=== PATIENT | male | born 1945 | race Caucasian/White ===

== ENCOUNTER 2018-04-18 20:35 | Inpatient (IN) ==
[2018-04-18] MEDS ORDERED: MOTRIN LIQUID PO ONE (21:06)
--- NOTE | 2018-04-18 21:34 | PROVIDER DOCUMENTATION ---
HPI-General Adult - General Chief Complaint: Flu Symptoms Stated Complaint: FLU Time Seen by Provider: 04/18/18 21:14 Source: patient, family Allergies/Adverse Reactions: Patient Allergies Allergy/AdvReac Type Severity Reaction Status Date / Time celecoxib [From Celebrex] Allergy ANAPHYLAXIS Verified 07/09/17 11:30 Home Medications: Home Medication List Medication Instructions Recorded Confirmed Last Taken Type Aspirin 81 mg PO DAILY 06/07/16 04/19/18 04/18/18 08:00 History Atorvastatin Calcium 80 mg PO DAILY@1700 06/07/16 04/19/18 04/18/18 08:00 History Bupropion [Wellbutrin] 150 mg PO DAILY 06/07/16 04/19/18 04/18/18 08:00 History Gabapentin 2 cap PO BID 06/07/16 04/19/18 04/18/18 08:00 History Insulin Aspart [Novolog] See Protocol SQ AC 06/07/16 04/19/18 04/18/18 12:00 History Insulin Glargine [Lantus] 60 unit SQ BID 06/07/16 04/19/18 04/18/18 12:00 History Magnesium Oxide [Mag-Ox] 400 mg PO DAILY@1700 06/07/16 04/19/18 04/18/18 17:00 History [place]-3 Fatty Acids [Fish Oil] 300 mg PO DAILY 06/07/16 04/19/18 04/18/18 08:00 History Ropinirole HCl 2 mg PO HS 06/07/16 04/19/18 04/17/18 21:00 History Tamsulosin [Flomax] 0.4 mg PO DAILY 06/07/16 04/19/18 04/18/18 08:00 History Zinc Gluconate [Zinc] 220 mg PO DAILY@1200 06/07/16 04/19/18 04/18/18 12:00 History Levothyroxine Sodium [Synthroid] 50 mcg PO DAILY@0700 04/12/17 04/19/18 07:00 History Melatonin 2 tab PO QHS 04/12/17 04/19/18 04/17/18 21:00 History Vitamin B Complex [B Complex] 1 each PO DAILY@1200 04/12/17 04/19/18 04/18/18 08 :00 History Hydrocortisone 1% Cream 30 gm .SEE ORDER DAILY PRN 05/02/17 04/19/18 04/16/18 08 :00 History Ranitidine [Zantac] 150 mg PO BID 05/02/17 04/19/18 04/18/18 08:00 History Amitriptyline HCl 1 tab PO QHS 05/22/17 04/19/18 04/17/18 22:00 History Amlodipine [Norvasc] 2.5 mg PO DAILY 05/22/17 04/19/18 04/18/18 08:00 History Ergocalciferol (Vitamin D2) 1 cap PO DIRECTED 05/22/17 04/19/18 04/01/18 08: 00 History [Vitamin D2] Folic Acid/Vit Bcomp,C [Renal 1 tab PO DAILY 07/09/17 04/19/18 04/18/18 08:00 History Vitamin Tablet] Metoprolol Tartrate 50 mg PO DAILY 07/09/17 04/19/18 04/18/18 08:00 History Furosemide 40 mg PO DAILY PRN #30 07/11/17 04/19/18 04/18/18 08:00 Rx Oseltamivir [Tamiflu] 75 mg PO BID #10 cap 04/17/18 04/19/18 04/18/18 08:00 Rx - History of Present Illness -Gen Adult Nature of Presenting Problems: PATIENT WAS DIAGNOSED WITH FLU YESTERDAY, CAME BACK FOR FEVER AND CHILLS, PATIENT HAD HISTORY OF KIDNEY CANCER, METASTASIS, DIABETIC NEUROPATHY, CAD WITH FEVER AND WEAKNESS, BODY ACHING Location of Pain/Injury: reports: generalized Pain Radiation: reports: no radiation Quality of Pain: reports: aching, dull Onset/Duration: reports: 3 days ago Timing: reports: still present Context/Activities at Onset: reports: none Modifying Factors: improves with: nothing Associated Symptoms: reports: fatigue, fever/chills. denies: anxiety Similar Symptoms Previously?: No Recently seen or treated by another doctor?: Yes (WAS IN ER LAST NIGHT ) Review of Systems - Adult - REVIEW OF SYSTEMS - ADULT Constitutional: reports: fever, fatique, night sweats Eyes: reports: no symptoms reported Ears, Nose, Mouth & Throat: reports: no symptoms reported Cardiovascular: reports: no symptoms reported Respiratory: reports: see HPI Gastrointestinal: reports: no symptoms reported Genitourinary: reports: no symptoms reported Musculoskeletal: reports: no symptoms reported Integumentary: reports: no symptoms reported Neurological: reports: no symptoms reported Past History - Adult - PAST MEDICAL HISTORY-ADULT Review of Records: reports: Nursing Assessment Review Major Childhood Illnesses: reports: denies history Cardiovascular: reports: CHF, HTN, hyperlipidemia Respiratory: reports: COPD, cancer (lung) Gastrointestinal: reports: GERD Obstetrical/Gynecological: reports: denies history Genitourinary: reports: cancer (kidney) Musculoskeletal: reports: denies history Neurological: reports: CVA Psychiatric: reports: depression Endocrine/Immune: reports: Diabetes Other Conditions: reports: denies history - PRIOR SURGERIES/PROCEDURES Surgical/Procedure History: reports: appendectomy, cardiac stent, other (left kidney removal) - IMMUNIZATION STATUS Childhood Immunizations: See Nurse Assessment Flu Vaccine: See Nurse Assessment - FAMILY HISTORY Family History: reviewed, not pertinent Physical Exam-General - PHYSICAL EXAM-ADULT Initial Vital Signs Reviewed: Yes - CONSTITUTIONAL General Appearance: alert, obese, other (SWEATING PROFUSELY) - EYES Eyes: PERRL/EOMI - HEAD, EARS, NOSE, MOUTH & THROAT HENMT: normocephalic/atraumatic - NECK Neck: non-tender, supple - RESPIRATORY Respiratory: no respiratory distress - CARDIOVASCULAR Cardiovascular: no edema, tachycardia - GASTROINTESTINAL (ABDOMEN) Abdominal Exam: non tender - LYMPHATIC Lymphatic: no adenopathy - MUSCULOSKELETAL Back Exam: no CVA tenderness, no vertebral tenderness Extremity: non-tender - SKIN Integumentary: diaphoresis - NEUROLOGIC Neurologic: grossly normal, no motor/sensory deficits - PSYCHIATRIC Psych/Mental Status: normal mood/affect Progress - PLAN OF CARE/RESULTS Progress/Plan/Lab Results: Vital Signs - 8 hr 04/18/18 20:37 Temperature 103.0 F H Pulse Rate 102 H Respiratory Rate 24 Blood Pressure 144/101 O2 Sat by Pulse Oximetry 92 L Orders Category Date Time Status Cardiac Monitoring DIRECTED Care 04/18/18 21:14 Active IV Insertion ORDERED Care 04/18/18 21:14 Active Notify MD of + Sepsis Screen NOW Care 04/18/18 21:14 Active Notify Physician As Ordered Care 04/18/18 21:14 Active CHEST-1 VIEW [RAD] Stat Exams 04/18/18 21:14 Ordered BLOOD CULTURE [BLDCUL] Stat Lab 04/18/18 21:14 Uncollected BNP [PRO B-NATRIURETIC PEPTIDE] Stat Lab 04/18/18 21:27 Uncollected CBC WITH DIFF [HEME] Stat Lab 04/18/18 21:14 Uncollected CK PROFILE [SP CHEM] Stat Lab 04/18/18 21:14 Uncollected COMPREHENSIVE METABOLIC PANEL [CHEM] Stat Lab 04/18/18 21:[address] Stat Lab 04/18/18 21:15 Uncollected LACTATE, PLASMA [CHEM] Q3H Lab 04/18/18 21:15 Uncollected LACTATE, PLASMA [CHEM] Q3H Lab 04/19/18 00:15 Uncollected LACTATE, PLASMA [CHEM] Q3H Lab 04/19/18 03:15 Uncollected PROTIME WITH INR [COAG] Stat Lab 04/18/18 21:14 Uncollected PTT [COAG] Stat Lab 04/18/18 21:14 Uncollected TROPONIN T Stat Lab 04/18/18 21:[address] W/POSS RFLX CULT [URINALYSIS] Stat Lab 04/18/18 21:23 Received Ibuprofen [Motrin Liquid] Med 04/18/18 21:06 Discontinued 800 mg PO NOW ONE Oxygen Device Stat Oth 04/18/18 21:14 Active Result Diagrams: 04/18/18 21:30 04/18/18 21:30 Departure - Departure Date of Disposition Decision: 04/19/18 Time of Disposition Decision: 01:30 DIAGNOSIS: Fever Disposition: ADMITTED INPATIENT 09 Certified Medical Emergency: Emergent Condition: Good - Critical Care Note This patient required my direct & personal management of CC.: No Attestation - Physician/ IVELISSE Attestation Patient care was provided by Advanced Practice Provider:: No The physician spent face to face time with patient:: Yes Advanced Practice Provider documentation review:: Supervising physician onsite and consulted in the evaluation and care of this patient. The physician did have a face to face encounter with the patient.
[2018-04-18 21:42] LABS: BASO# 0.01 X1000 (0.0-0.2); BASO% 0.2 % (0.0-0.8); EOS# 0.01 X1000 (0.0-0.7); EOS% 0.2 % (0.0-10.0); HEMATOCRIT 41.4 % (42.0-52.0); HEMOGLOBIN 14.4 g/dL (14.0-18.0); IMM GRAN# 0.02 X1000 (0.0-0.04); IMM GRAN% 0.4 % (0.0-0.5); LYMPH# 0.25 X1000 (1.2-3.4); LYMPH% 5.5 % (20.5-51.1); MCH 30.1 PG (27-31); MCHC 34.8 g/dL (33-37); MCV 86.4 FL (81-99); MONO# 0.18 X1000 (0.11-0.59); MPV 9.9 FL (7.4-10.4); NEUT# 4.07 X1000 (1.4-6.5); NEUT% 89.7 % (42.2-75.2); PLT 125 X1000 (130-400); RBC 4.79 XMIL (4.7-6.1); RDW 15.3 % (11.5-14.5); WBC 4.54 X1000 (4.8-10.8)
[2018-04-18 21:45] LABS: BILIRUBIN URINE NEGATIVE (NEGATIVE); BLOOD URINE 3+ (NEGATIVE); CLARITY CLEAR (CLEAR); COLOR YELLOW; KETONE URINE NEGATIVE (NEGATIVE); LEUKOCYTES URINE NEGATIVE (NEGATIVE); NITRITE URINE NEGATIVE (NEGATIVE); PH URINE 6.5; SP GRAVITY URINE 1.015; UROBILINOGEN URINE NORMAL
[2018-04-18 21:48] LABS: URINE EPITHELIAL CELLS <10 /HPF (<10); URINE RBC <10 /HPF (<10); URINE WBC <10 /HPF (<10)
[2018-04-18 21:49] LABS: URINE BACTERIA 2+ /HFP; URINE SOURCE CLEAN CATCH
[2018-04-18 22:15] LABS: ALBUMIN 3.7 g/dL (3.5-5.0); CALCIUM 8.6 mg/dL (8.8-10.2); CREATININE 2.9 mg/dL (0.7-1.2); POTASSIUM 5.7 mmol/L (3.5-5.1); TOTAL BILIRUBIN 0.9 mg/dL (0.20-1.00); TOTAL PROTEIN 6.9 g/dL (6.3-8.3)
[2018-04-18 22:16] LABS: INFLUENZA A NEGATIVE (NEGATIVE); INFLUENZA B NEGATIVE (NEGATIVE); INR 0.98; PROTIME 13.5 Seconds (11.0-16.0)
[2018-04-18 22:17] LABS: PTT 35.8 Seconds (22.3-41.8)
[2018-04-18 22:39] LABS: CK INDEX 0.9 (0.0-2.5); CK-MB 6.09 ng/mL (0.0-5.0)
[2018-04-19] MEDS ORDERED: VANCOMYCIN 1 GM/NS 1 GM/250 ML IVPB IV ONE (00:09)
[2018-04-19] MEDS ORDERED: KAYEXALATE PO ONE (00:10)
[2018-04-19] MEDS ORDERED: MORPHINE IV PRN (00:35)
[2018-04-19] MEDS ORDERED: ZOFRAN IV PRN (00:35)
[2018-04-19] MEDS ORDERED: KAYEXALATE ONE (00:44)
[2018-04-19] MEDS: ZOSYN 2.25 GM in NS 50 ML IV SCH ×4 (03:13→21:26)
[2018-04-19] MEDS ORDERED: NS 500 ML IV ONE (03:38)
[2018-04-19] MEDS: NS 1,000 ML IV SCH ×3 (04:23→20:29)
[2018-04-19 07:28] LABS: HEMATOCRIT 39.7 % (42.0-52.0); HEMOGLOBIN 13.3 g/dL (14.0-18.0); MCH 29.4 PG (27-31); MCHC 33.5 g/dL (33-37); MCV 87.8 FL (81-99); MPV 9.8 FL (7.4-10.4); RBC 4.52 XMIL (4.7-6.1); RDW 15.4 % (11.5-14.5); WBC 7.49 X1000 (4.8-10.8)
[2018-04-19 08:11] LABS: ALBUMIN 3.1 g/dL (3.5-5.0); CALCIUM 8.3 mg/dL (8.8-10.2); CREATININE 3.1 mg/dL (0.7-1.2); POTASSIUM 5.7 mmol/L (3.5-5.1); TOTAL BILIRUBIN 0.7 mg/dL (0.20-1.00); TOTAL PROTEIN 6.5 g/dL (6.3-8.3)
[2018-04-19] MEDS ORDERED: INSULIN PEN NEEDLES MISC PRN (13:03)
[2018-04-19] MEDS: LASIX IV SCH (13:45)
[2018-04-19] MEDS: REQUIP PO SCH (21:26)
[2018-04-19] MEDS: NEURONTIN PO SCH (21:26)
[2018-04-19] MEDS: BASAGLAR SUBQ SCH (21:33)
[2018-04-20] MEDS: NS 1,000 ML IV SCH ×4 (00:53→21:42)
--- NOTE | 2018-04-20 01:51 | HISTORY AND PHYSICAL ---
CHIEF COMPLAINT: Fever and flu symptoms. HISTORY OF PRESENT ILLNESS: Patient is a 72-year-old male who presented to the emergency department. He had actually been to the ER 2 days ago and had a flu test that was negative and again flu test was negative this time. States, however, he has been having fevers, chills, generalized malaise, has been fatigued. He has had some cough and congestion. He has a known history of kidney cancer. ALLERGIES: Celebrex causing anaphylaxis. MEDICATIONS: Aspirin, atorvastatin 80, Wellbutrin 150, gabapentin 2 twice daily, Lantus insulin 60 units twice a day, magnesium, Ropinirole 2 mg at bedtime, Flomax 0.4 mg, Synthroid 50, Zantac, amitriptyline at bedtime, Norvasc 2.5, metoprolol 50. REVIEW OF SYSTEMS: Patient notes he does not feel well. He is having cough, congestion, fevers, chills. Denies any muscle aches, tremors, or palpitations. Does have some back aches. FAMILY HISTORY: Noncontributory. SOCIAL HISTORY: Patient lives at home. Does not smoke or drink. PAST MEDICAL HISTORY: High cholesterol, depression, chronic neuropathy, diabetes, restless leg, BPH, hypothyroidism, hypertension, history of kidney cancer with metastases. PHYSICAL EXAMINATION: VITAL SIGNS: Reviewed. T-max 103 degrees. Pulse stable. Respiratory 22. GENERAL: Patient is awake, alert. He is currently in no respiratory distress. He is pleasant to talk with. He is somewhat ill appearing. HEENT: Normocephalic. NECK: Supple. CARDIOVASCULAR: Regular rate. No murmurs. CHEST: Relatively clear. No crackles. Positive rhonchi. Positive upper airway noise. No wheezing. ABDOMEN: Soft, obese, nondistended. EXTREMITIES: Moves all extremities. His left leg is currently in a boot per Wound Care. ASSESSMENT: 1. Febrile illness. Patient certainly could have the flu although he has been flu negative x2. 2. Hypertension. 3. Diabetes. 4. Diabetic peripheral neuropathy. 5. Restless leg. 6. Benign prostatic hypertrophy. 7. Others. PLAN: We will ask Wound to remove the boot so they can reevaluate as that certainly could be the source of his infection. He has an elevated creatinine. Potassium is elevated at 5.7. Sodium is low at 30. We will place him on antibiotics and we will follow. cc: Julian Ramirez MD
[2018-04-20] MEDS: ZOSYN 2.25 GM in NS 50 ML IV SCH ×4 (04:11→21:42)
[2018-04-20 06:08] LABS: HEMATOCRIT 35.9 % (42.0-52.0); HEMOGLOBIN 12.1 g/dL (14.0-18.0); MCH 29.4 PG (27-31); MCHC 33.7 g/dL (33-37); MCV 87.1 FL (81-99); MPV 10.3 FL (7.4-10.4); RBC 4.12 XMIL (4.7-6.1); RDW 14.9 % (11.5-14.5); WBC 5.9 X1000 (4.8-10.8)
[2018-04-20 06:35] LABS: ALBUMIN 3.3 g/dL (3.5-5.0); CALCIUM 8.3 mg/dL (8.8-10.2); CREATININE 2.8 mg/dL (0.7-1.2); MAGNESIUM 1.9 mg/dL (1.5-2.7); TOTAL BILIRUBIN 0.5 mg/dL (0.20-1.00); TOTAL PROTEIN 6.6 g/dL (6.3-8.3)
[2018-04-20] MEDS: SYNTHROID PO SCH (06:39)
[2018-04-20] MEDS: HUMALOG (PARKWAY) SUBQ SCH ×4 (06:39→21:37)
[2018-04-20] MEDS ORDERED: LASIX PO PRN (10:12)
[2018-04-20] MEDS: FLOMAX PO SCH (10:39)
[2018-04-20] MEDS: ASPIRIN PO SCH (10:39)
[2018-04-20] MEDS: BASAGLAR SUBQ SCH ×2 (10:39→21:37)
[2018-04-20] MEDS: NEURONTIN PO SCH ×2 (10:39→21:37)
[2018-04-20] MEDS: LASIX IV SCH (10:40)
[2018-04-20] MEDS: WELLBUTRIN XL PO SCH (13:25)
[2018-04-20] MEDS: ZANTAC PO SCH ×2 (13:25→21:38)
--- NOTE | 2018-04-20 15:42 | PROGRESS NOTE ---
DATE: 04/20/2018 SUBJECTIVE: Patient overall notes that he is feeling okay. Actually notes having some pain in his left foot which is unusual for him. PHYSICAL EXAMINATION: Vital Signs: Temperature 98.2, pulse 65, respiratory rate 18, BP 102/49. General: Patient is awake, alert, currently in no distress. He is lying in the bed, propped up watching television. HEENT: Normocephalic. Neck: Supple. CARDIOVASCULAR: Regular rate. Chest: Clear. Abdomen: Soft. Extremities: Moves all extremities. Neurologic: No changes. Skin: Left great toe is currently bandaged, clean, dry, and intact. It was draining pus. This has been cultured. DISPOSITION: Will continue vancomycin and Zosyn. Continue to follow further orders as needed. cc: Julian Ramirez MD
[2018-04-20] MEDS: MAG-OX PO SCH (16:15)
[2018-04-20] MEDS: MELATONIN PO SCH (21:37)
[2018-04-20] MEDS: REQUIP PO SCH (21:38)
[2018-04-20] MEDS: ELAVIL PO SCH (21:38)
[2018-04-21] MEDS: NORCO-5 PO PRN ×2 (00:02→21:36)
[2018-04-21] MEDS: ZOSYN 2.25 GM in NS 50 ML IV SCH ×4 (02:50→21:29)
[2018-04-21] MEDS: NS 1,000 ML IV SCH (03:00)
[2018-04-21] MEDS: SYNTHROID PO SCH (06:31)
[2018-04-21] MEDS: BASAGLAR SUBQ SCH ×2 (10:22→21:29)
[2018-04-21] MEDS: FLOMAX PO SCH (10:23)
[2018-04-21] MEDS: WELLBUTRIN XL PO SCH (10:23)
[2018-04-21] MEDS: ASPIRIN PO SCH (10:23)
[2018-04-21] MEDS: NEURONTIN PO SCH ×2 (10:23→21:28)
[2018-04-21] MEDS: LASIX IV SCH (10:23)
[2018-04-21] MEDS: ZANTAC PO SCH ×2 (10:24→21:28)
[2018-04-21] MEDS: HUMALOG (PARKWAY) SUBQ SCH ×4 (10:24→21:29)
[2018-04-21] MEDS: MAG-OX PO SCH (16:56)
--- NOTE | 2018-04-21 17:46 | PROGRESS NOTE ---
DATE: 04/21/2018 SUBJECTIVE: Patient notes he is still having some pain deep inside his foot. Denies any fevers or chills. Denies GI or issues currently. Denies any other muscle aches. OBJECTIVE: Vital signs: Temperature 97.5, pulse 67, respiratory rate 20, BP 122/69. General: Patient is awake. He is in no current respiratory distress. Very pleasant to talk with. Sitting in the bed. HEENT: Normocephalic. Neck: Supple. Cardiovascular: Regular rate. No murmurs. Chest: Clear and unlabored. Abdomen: Soft, nondistended, obese. Extremities: Moves all extremities. Skin: Warm and dry. He has a left great toe bandage, clean, dry, and intact. ASSESSMENT: 1. Febrile illness, likely secondary to infection in his left great toe. Currently culture is negative. 2. Chronic renal failure, stable. 3. Diabetes with hyperglycemia and diabetic neuropathy. 4. Hypertension. PLAN: We will continue patient in the hospital. Continue antibiotics until cultures are negative. We will have wound therapy re-evaluate in the a.m. Continue to follow. cc: Julian Ramirez MD
[2018-04-21] MEDS: REQUIP PO SCH (21:28)
[2018-04-21] MEDS: MELATONIN PO SCH (21:28)
[2018-04-21] MEDS: ELAVIL PO SCH (21:29)
[2018-04-22] MEDS: ZOSYN 2.25 GM in NS 50 ML IV SCH ×2 (02:50→09:38)
[2018-04-22] MEDS: SYNTHROID PO SCH (06:02)
[2018-04-22] MEDS: HUMALOG (PARKWAY) SUBQ SCH ×2 (06:28→13:02)
[2018-04-22] MEDS: BASAGLAR SUBQ SCH (09:38)
[2018-04-22] MEDS: NEURONTIN PO SCH (09:38)
[2018-04-22] MEDS: WELLBUTRIN XL PO SCH (09:39)
[2018-04-22] MEDS: ASPIRIN PO SCH (09:39)
[2018-04-22] MEDS: FLOMAX PO SCH (09:39)
[2018-04-22] MEDS: ZANTAC PO SCH (09:39)
[2018-04-22 12:36] VITALS: BP 177/92
[2018-04-22] MEDS ORDERED: LEVAQUIN PO ONE (13:09)
--- NOTE | 2018-04-22 13:16 | Diag Imaging Result Doc PS360 ---
EXAM: FOOT COMPLETE LEFT 04/22/2018 HISTORY: r/o osteomyelitis TECHNIQUE: Left foot three views COMMENT: There is irregularity of the adjoining articular surfaces of the proximal and distal phalanges of the great toe. There is widening of the joint space. This was also present on 05/02/2017. No additional periosteal reaction or erosion is present. IMPRESSION: Chronic changes in the interphalangeal joint of the great toe. Electronically signed by Tenzin Galeana 04/22/2018 1:13 PM
--- NOTE | 2018-04-23 11:55 | DISCHARGE SUMMARY ---
ADMISSION DATE: 04/19/2018 DISCHARGE DATE: 04/22/2018 DISCUSSION: Patient is doing well day of discharge, afebrile. He really wants to go home. His microbiology shows Pseudomonas. He does have an open lesion at the 1st DIP joint on the 1st toe on his left foot. No drainage. It looks dry. Plan will be to discharge with wound care and on another 10 days of Levaquin and follow up with Dr. Conteh who he sees on a regular basis. TIME SPENT: 32 minute discharge. [id number] encounter note with MEGAN Pagan. cc: Oliver Barrera MD
--- NOTE | 2018-04-23 12:04 | DISCHARGE SUMMARY ---
ADMISSION DATE: 04/19/2018 DISCHARGE DATE: 04/22/2018 PRIMARY CARE PHYSICIAN: None. ADMISSION DIAGNOSES: 1. Febrile illness with possible flu. 2. Hypertension. 3. Diabetes. 4. Diabetic peripheral neuropathy. 5. Restless legs. 6. Benign prostatic hypertrophy. 7. Others. DISCHARGE DIAGNOSES: 1. Febrile illness, likely secondary to an infection in his left great toe with negative culture initially, but final culture shows Pseudomonas aeruginosa. 2. Chronic renal failure, stable. 3. Diabetes with hyperglycemia and diabetic neuropathy. 4. Hypertension. SUMMARY OF FINDINGS: This is a 72-year-old male who presented to the ER with fever, chills, generalized malaise and being fatigued, had been having some cough and congestion also. He had been to the ER 2 days prior and had a flu test that was negative and again on this admission, tested negative for flu A and flu B. He has his left leg currently in a boot per wound care and it was felt that could certainly be the source of his infection. We did a wound culture on the left great toe that grew out a Pseudomonas aeruginosa. He was treated appropriately. We did a foot x- ray today that showed chronic changes in the interphalangeal joint of the great toe. He has remained afebrile for greater than 24 hours, so it is felt that he could safely be discharged home. DISCHARGE MEDICATION: Amitriptyline 50 mg p.o. at bedtime, aspirin 81 p.o. daily, bupropion 150 mg p.o. daily, Lasix 40 mg p.o. daily p.r.n., gabapentin 300 mg 2 capsules b.i.d., Lantus 60 units subcutaneously b.i.d., levothyroxine 50 mcg p.o. daily, Mag oxide 400 mg p.o. daily, melatonin 5 mg 2 tablets p.o. at bedtime, Renacidin 150 mg p.o. b.i.d., propranolol 2 mg p.o. at bedtime, tamsulosin 0.4 mg p.o. daily, amlodipine 2.5 mg p.o. daily, atorvastatin 80 mg p.o. daily, vitamin D2 50,000 units 1 capsule as directed, folic acid 0.8 mg 1 p.o. daily, hydrocortisone 1% cream topically p.r.n., NovoLog per protocol, Levaquin prescription 500 mg p.o. daily, #10 with no refills, metoprolol 50 mg p.o. daily, omega-3 fatty acids 300 mg p.o. daily, vitamin B complex 1 p.o. daily, zinc gluconate 220 mg p.o. daily. FOLLOW-UP: He will follow up with his primary care physician in 1 to 2 weeks and call the office for an appointment. TIME SPENT: 33 minute discharge. Dictated by MEGAN Pagan for Oliver Barrera MD cc: MEGAN Pagna MD Marco Ortega, MD
== END 2018-04-22 15:22 | disposition home or self-care (01) | DRG 638 ==
LOC: P.ED 20:35 → SUATTDRO 04-19 00:58 → P.MEDSURG 04-19 00:58
PROVIDERS: ATTEND Internal Medicine
CPT/HCPCS: 73630; 80053; 81001; 82550; 82553; 82948; 83605; 83735; 83880; 84484; 85025; 85027; 85610; 85730; 87040; 87070; 87077; 87088; 87186; 87275; 87276; 87804; 94761; 96365; 96366; 99285; A9270; J1815; J1940; J2543; J3370; J7030; J7040; XXXXX